=== PATIENT | male | born 1960 | race Caucasian/White ===

== ENCOUNTER 2017-06-07 10:42 | Emergency (ER) | payer OTHER ==
[2017-06-07 11:17] VITALS: TEMP 98.1; BMI 20.9
--- NOTE | 2017-06-07 11:34 | ED PDOC ---
Arrival/HPI - General Chief Complaint: Lower Extremity Problem/Injury Time Seen by Provider: 06/07/17 11:20 Historian: Patient - History of Present Illness Narrative History of Present Illness (Text): 06/07/17 11:20 This 57 yo male presents to this ED c/o left knee pain and swelling x 8 days. Patient stated while standing, his left knee :gave out", causing his left knee to turn. He said his left knee is mild swelling. Denies past medical history. He admits a left knee injury x 8 months ago while at work on the same knee, but ot improved within few days. Denies recent travel, recent surgery, hx. gout, leg swelling, calf pain, dizziness, or abnormal gait. Time/Duration: 1 week Quality: Aching Context: Home Past Medical History - Provider Review Nursing Documentation Reviewed: Yes - Infectious Disease Hx of Infectious Diseases: None - Tetanus Immunization Tetanus Immunization: Up to Date (tetanus 4 yrs ago) - Psychiatric Hx Depression: No Hx Emotional Abuse: No Hx Physical Abuse: No Hx Substance Use: No - Anesthesia Hx Anesthesia: No - Suicidal Assessment Feels Threatened In Home Enviroment: No Family/Social History - Physician Review Nursing Documentation Reviewed: Yes Family/Social History: No Known Family HX Smoking Status: Never Smoked Hx Alcohol Use: Yes (Socially) Frequency of alcohol use: Socially Hx Substance Use: No Hx Substance Use Treatment: No Allergies/Home Meds Allergies/Adverse Reactions: Allergies No Known Allergies Allergy (Verified 06/07/17 11:05) Review of Systems - Review of Systems Constitutional: Normal. absent: Fatigue, Weight Change, Fevers, Night Sweats Eyes: Normal ENT: Normal Respiratory: Normal Cardiovascular: Normal Gastrointestinal: Normal Genitourinary Male: Normal Musculoskeletal: Other ((+) left knee pain and swelling) Skin: Normal Neurological: Normal Endocrine: Normal Hemo/Lymphatic: Normal Psychiatric: Normal Physical Exam Vital Signs Temp Pulse Resp BP Pulse Ox 06/07/17 14:30 63 17 136/77 99 06/07/17 11:07 98.1 F 50 L 18 148/80 98 Temperature: Afebrile Blood Pressure: Normal Pulse: Regular Respiratory Rate: Normal Appearance: Positive for: Well-Appearing, Non-Toxic, Comfortable Pain Distress: None Mental Status: Positive for: Alert and Oriented X 3 - Systems Exam Head: Present: Atraumatic, Normocephalic Pupils: Present: PERRL Extroacular Muscles: Present: EOMI Conjunctiva: Present: Normal Mouth: Present: Moist Mucous Membranes Neck: Present: Normal Range of Motion Back: Present: Normal Inspection Upper Extremity: Present: Normal Inspection, Normal ROM, NORMAL PULSES, Neurovascularly Intact, Capillary Refill < 2s. No: Cyanosis, Edema Lower Extremity: Present: NORMAL PULSES, Normal ROM, Neurovascularly Intact, Capillary Refill < 2 s, Other ((+) left knee appears mild swollen. No tenderness. No septic knee joint. no erythema or skin rash. Right knee is normal). No: Edema, CALF TENDERNESS, Cyanosis, Sussy's Sign, Erythema, Deformity, Temperature Abnormalties Neurological: Present: GCS=15, CN II-XII Intact, Speech Normal, Motor Func Grossly Intact, Normal Sensory Function, Normal Cerebellar Funct, Gait Normal, Memory Normal Skin: Present: Warm, Dry, Normal Color. No: Rashes Psychiatric: Present: Alert, Oriented x 3, Normal Insight, Normal Concentration Medical Decision Making ED Course and Treatment: 06/07/17 13:51 Re-evaluation. Patient feels better. Discussed results and plan with patient who expresses understanding. Counseling was provided regarding the diagnosis and prognosis. All questions answered and there is agreement with the plan to discharge home with instructions. Patient stable for discharge. Return if symptoms persist or worsen Re-evaluation Time: 13:50 Reassessment Condition: Re-examined, Improved - RAD Interpretation Narrative RAD Interpretations (Text): Accession No. : [id number] Patient Name / ID : JORGE LUIS SPEARS / [id number] Exam Date : 06/07/2017 12:35:50 ( Approved ) Study Comment : Sex / Age : M / 57Y Creator : Ameya Lewis MD Dictator : Ameya Lewis MD Seafood Packer : Market Researcher : Ameya Lewis MD Approver2 : Report Date : 06/07/2017 12:49:26 My Comment : PROCEDURE: Left Knee Radiographs. HISTORY: Pain. COMPARISON: None. FINDINGS: BONES: Normal. No fracture. JOINTS: Normal. No osteoarthritis. JOINT EFFUSION: None. OTHER FINDINGS: The patellar view is unremarkable IMPRESSION: Normal radiographs of the left knee. Radiology Orders: 06/07/17 11:36 KNEE WITH PATELLA LEFT 3 VIEW [RAD] Stat - Medication Orders Current Medication Orders: Discontinued Medications Naproxen (Anaprox Ds) 550 mg PO STAT STA Stop: 06/07/17 11:38 Last Admin: 06/07/17 12:13 Dose: 550 mg Disposition/Present on Arrival - Present on Arrival Any Indicators Present on Arrival: No History of DVT/PE: No History of Uncontrolled Diabetes: No Urinary Catheter: No History of Decub. Ulcer: No History Surgical Site Infection Following: None - Disposition Have Diagnosis and Disposition been Completed?: Yes Diagnosis: Knee pain Disposition: HOME/ ROUTINE Disposition Time: 13:51 Patient Plan: Discharge Condition: GOOD Discharge Instructions (ExitCare): Knee Sprain (ED) Additional Instructions: Call private doctor for follow up visit in 1-2 days. Apply ice pack, and rest. Remove lucille bandage at bedtime. Return to emergency if pain worsen. Prescriptions: Naproxen [Naprosyn Tab] 375 mg PO BID #14 tab Referrals: [facility]PPADMAJA [Primary Care Provider] - Follow up with primary Tram Turcios MD [Staff Provider] - Follow up with primary Forms: [employer] (American)
[2017-06-07] MEDS ORDERED: Naproxen 550 mg Tab PO STA (11:37)
--- NOTE | 2017-06-07 12:51 | RAD ---
PROCEDURE: Left Knee Radiographs. HISTORY: Pain. COMPARISON: None. FINDINGS: BONES: Normal. No fracture. JOINTS: Normal. No osteoarthritis. JOINT EFFUSION: None. OTHER FINDINGS: The patellar view is unremarkable IMPRESSION: Normal radiographs of the left knee.
[2017-06-07 14:31] VITALS: BP 136/77; PULSE 63; RESP 17; O2SAT 99
== END 2017-06-07 14:31 | disposition home or self-care (01) ==
LOC: ED 10:42
DX: M25.562 Pain in left knee (principal)

== ENCOUNTER 2017-09-22 09:00 | Emergency (ER) | payer OTHER ==
[2017-09-22 09:07] VITALS: BMI 21.1
[2017-09-22 09:11] VITALS: TEMP 98.2
--- NOTE | 2017-09-22 09:42 | ED PDOC ---
Arrival/HPI - General Chief Complaint: Lower Extremity Problem/Injury Time Seen by Provider: 09/22/17 09:12 Historian: Patient - History of Present Illness Narrative History of Present Illness (Text): 09/22/17 09:38 57yr old male presents today with chronic left knee pain. pt denies any trauma or injury. states he has been having pain in the medial aspect of the knee for the past 2-3 months. denies fever/chills. pt states pain is sharp pressure and worse with walking up stairs. no medications have been taken for pain at home. no fever/chills. no numbness, weakness, tingling in the extremities. no other complaints. Time/Duration: > month (2-3 months) Symptom Onset: Gradual Symptom Course: Unchanged Quality: Aching, Pressure Severity Level: 5 Past Medical History - Provider Review Nursing Documentation Reviewed: Yes - Travel History Have you recently traveled outside [place] w/in the past 3 mons?: No - Infectious Disease Hx of Infectious Diseases: None - Tetanus Immunization Tetanus Immunization: Up to Date (tetanus 4 yrs ago) - Psychiatric Hx Depression: No Hx Emotional Abuse: No Hx Physical Abuse: No Hx Substance Use: No - Anesthesia Hx Anesthesia: No Hx Anesthesia Reactions: No Hx Malignant Hyperthermia: No - Suicidal Assessment Feels Threatened In Home Enviroment: No Family/Social History - Physician Review Nursing Documentation Reviewed: Yes Family/Social History: Unknown Family HX Smoking Status: Smoker Currrent Status Unknown Hx Alcohol Use: Yes (Socially) Hx Substance Use: No Hx Substance Use Treatment: No Allergies/Home Meds Allergies/Adverse Reactions: Allergies No Known Allergies Allergy (Verified 06/07/17 11:05) Review of Systems - Review of Systems Constitutional: absent: Fatigue, Fevers Respiratory: absent: SOB, Cough Cardiovascular: absent: Chest Pain, Palpitations Gastrointestinal: absent: Abdominal Pain, Nausea, Vomiting Genitourinary Male: absent: Dysuria Musculoskeletal: Arthralgias (left knee pain). absent: Back Pain, Neck Pain Skin: absent: Rash, Pruritis Neurological: absent: Headache, Dizziness Psychiatric: absent: Anxiety, Depression Physical Exam Vital Signs Reviewed: Yes Vital Signs Temp Pulse Resp BP Pulse Ox 09/22/17 09:08 98.2 F 56 L 16 148/86 97 Temperature: Afebrile Blood Pressure: Normal Pulse: Regular Respiratory Rate: Normal Appearance: Positive for: Well-Appearing, Non-Toxic, Comfortable Pain Distress: None Mental Status: Positive for: Alert and Oriented X 3 - Systems Exam Head: Present: Atraumatic Mouth: Present: Moist Mucous Membranes Respiratory/Chest: Present: Clear to Auscultation Cardiovascular: Present: Regular Rate and Rhythm Lower Extremity: Present: Normal Inspection, NORMAL PULSES, Normal ROM, Tenderness (left knee; NO edema, no erythema, no ecchymosis; full rom of knee. + minimal ttp over medial anterior aspect of the knee. no calf tenderness; sensation and distal pulses intact. cap refill <2. ), Neurovascularly Intact, Capillary Refill < 2 s. No: Edema, CALF TENDERNESS, Swelling, Erythema, Deformity, Temperature Abnormalties Neurological: Present: GCS=15, Speech Normal Skin: Present: Warm, Dry, Normal Color. No: Rashes Psychiatric: Present: Alert, Oriented x 3 Medical Decision Making ED Course and Treatment: 09/22/17 09:44 Patient nontoxic well-appearing in no distress with stable vital signs X-rays of the left knee; no fracture toradol IM Patient placed in knee immobilizer. Patient refused Crutches. cane given for ambulation I discussed all results with patient advised to followup with the orthopedist for the next 2 days. Return if symptoms worsen persist or new symptoms develop Patient verbalizes understanding of discharge instructions and need for immediate followup. all aspects of this case were discussed the attending of record. Impression: knee pain Motrin every 6 hours as needed for pain Rest, ice, compression, elevation Use crutches for ambulation Followup with the orthopedist within the next 2 days Followup with primary care physician within the next 2 days Return if symptoms worsen persist or if new symptoms develop - RAD Interpretation Radiology Orders: 09/22/17 09:25 KNEE WITH PATELLA LEFT 3 VIEW [RAD] Stat - Medication Orders Current Medication Orders: Discontinued Medications Ketorolac Tromethamine (Toradol) 60 mg IM STAT STA Stop: 09/22/17 09:26 Last Admin: 09/22/17 09:33 Dose: 60 mg [place] Pain Assessment Document 09/22/17 09:33 SF (Rec: 09/22/17 09:33 [id number]) Pain Reassessment Is this a pain reassessment? Yes Sleep Is patient sleeping during reassessment? No Presence of Pain Presence of Pain Yes Pain Scale Used Pain Scale Used Numeric IM Administration Charges Document 09/22/17 09:33 SF (Rec: 09/22/17 09:33 [id number]) Injection Site MAR Injection Site Left Deltoid Charges for Administration # of IM Administrations 1 Disposition/Present on Arrival - Present on Arrival Any Indicators Present on Arrival: No History of DVT/PE: No History of Uncontrolled Diabetes: No Urinary Catheter: No History of Decub. Ulcer: No History Surgical Site Infection Following: None - Disposition Have Diagnosis and Disposition been Completed?: Yes Diagnosis: Knee pain Disposition: HOME/ ROUTINE Disposition Time: 10:04 Patient Plan: Discharge Condition: GOOD Discharge Instructions (ExitCare): Knee Pain (ED) Additional Instructions: Motrin every 6 hours as needed for pain Rest, ice, compression, elevation Use crutches for ambulation Followup with the orthopedist within the next 2 days Followup with primary care physician within the next 2 days Return if symptoms worsen persist or if new symptoms develop Prescriptions: Ibuprofen [Motrin] 600 mg PO Q6H PRN #20 tab PRN Reason: pain/fever reduction Referrals: See Carpio III, MD [Medical Doctor] - [facility] up with [place] [facility] [place] - Follow up with primary [facility] [place] [Outside] - Follow up with primary Tawanda Sanchez MD [Staff Provider] - Follow up with primary Forms: [employer] (Uzbek), WORK NOTE
--- NOTE | 2017-09-22 10:08 | RAD ---
PROCEDURE: Left Knee Radiographs. HISTORY: Pain. No history of recent/ related trauma provided COMPARISON: None. FINDINGS: BONES: Normal. No fracture. JOINTS: Normal. No osteoarthritis. JOINT EFFUSION: None. OTHER FINDINGS: None. IMPRESSION: No significant or acute findings to account for/ related to the clinical presentation.
[2017-09-22 10:44] VITALS: BP 145/80; PULSE 62; RESP 17; O2SAT 98
== END 2017-09-22 10:46 | disposition home or self-care (01) ==
LOC: ED 09:00
DX: M25.562 Pain in left knee (principal)
CPT/HCPCS: 73562; 96372; 99284; J1885

== ENCOUNTER 2017-10-23 13:21 | Emergency (ER) | payer OTHER ==
[2017-10-23 13:21] VITALS: BMI 21.1
[2017-10-23 13:36] VITALS: TEMP 99.3
--- NOTE | 2017-10-23 13:38 | ED PDOC ---
Arrival/HPI - General Chief Complaint: Lower Extremity Problem/Injury Time Seen by Provider: 10/23/17 13:32 Historian: Patient - History of Present Illness Narrative History of Present Illness (Text): 10/23/17 13:34 57 y/o male, pmh including chronic left knee pain for the past 5 months, nkda, c /o lt. knee/calf pain x 5 months. aching pain, aggravated by walking, no pain medication taken at home, no night sweat, no dizziness, no chest pain or shortness of breath, no night sweat, no rash, no other medical or psychological complaints. Past Medical History - Provider Review Nursing Documentation Reviewed: Yes - Infectious Disease Hx of Infectious Diseases: None - Tetanus Immunization Tetanus Immunization: Up to Date (tetanus 4 yrs ago) - Cardiac Hx Cardiac Disorders: No Hx Hypertension: No - Pulmonary Hx Pneumonia: No - HEENT Hx Epistaxis: No - Endocrine/Metabolic Hx Hypothyroidism: No - Integumentary Hx Squamous Cell Carcinoma: No - Musculoskeletal/Rheumatological Hx Musculoskeletal Disorders: No - Gastrointestinal Hx Colostomy: No - Genitourinary/Gynecological Hx Genitourinary Disorders: No - Psychiatric Hx Depression: No Hx Emotional Abuse: No Hx Physical Abuse: No Hx Substance Use: No - Anesthesia Hx Anesthesia: No Hx Anesthesia Reactions: No Hx Malignant Hyperthermia: No - Suicidal Assessment Feels Threatened In Home Enviroment: No Family/Social History - Physician Review Nursing Documentation Reviewed: Yes Family/Social History: Unknown Family HX Smoking Status: Smoker Currrent Status Unknown Hx Alcohol Use: Yes (Socially) Hx Substance Use: No Hx Substance Use Treatment: No Allergies/Home Meds Allergies/Adverse Reactions: Allergies No Known Allergies Allergy (Verified 10/23/17 13:25) Review of Systems - Review of Systems Constitutional: absent: Fatigue, Fevers Eyes: absent: Vision Changes ENT: absent: Hearing Changes Respiratory: absent: SOB, Cough Cardiovascular: absent: Chest Pain Gastrointestinal: absent: Abdominal Pain, Nausea, Vomiting Musculoskeletal: Arthralgias, Myalgias. absent: Back Pain, Neck Pain, Joint Swelling Skin: absent: Rash, Pruritis Neurological: absent: Headache, Dizziness Psychiatric: absent: Anxiety, Depression Physical Exam Vital Signs Reviewed: Yes Vital Signs Temp Pulse Resp BP Pulse Ox 10/23/17 13:28 99.3 F 71 16 118/73 97 Temperature: Afebrile Blood Pressure: Normal Pulse: Regular Respiratory Rate: Normal Appearance: Positive for: Well-Appearing, Non-Toxic, Comfortable Pain Distress: Moderate Mental Status: Positive for: Alert and Oriented X 3 - Systems Exam Head: Present: Atraumatic, Normocephalic Pupils: Present: PERRL Extroacular Muscles: Present: EOMI Conjunctiva: Present: Normal Mouth: Present: Moist Mucous Membranes Neck: Present: Normal Range of Motion Respiratory/Chest: Present: Clear to Auscultation, Good Air Exchange. No: Respiratory Distress, Accessory Muscle Use Cardiovascular: Present: Regular Rate and Rhythm, Normal S1, S2. No: Murmurs Abdomen: Present: Normal Bowel Sounds. No: Tenderness, Distention, Peritoneal Signs Back: Present: Normal Inspection Upper Extremity: Present: Normal Inspection. No: Cyanosis, Edema Lower Extremity: Present: Normal Inspection, NORMAL PULSES, Other (Lt. knee: no tenderness or swelling, no deformities, FROM without limitation, sensation intact, motor 5/5, +DPPT pulses, capillary refill< 2 seconds, neurovascular intact, no cellulitis, mild lt. calf tenderness. ). No: Edema, Tenderness, Swelling Neurological: Present: GCS=15, Speech Normal, Motor Func Grossly Intact, Gait Normal, Memory Normal Skin: Present: Warm, Dry, Normal Color. No: Rashes Psychiatric: Present: Alert, Oriented x 3, Normal Insight, Normal Concentration Medical Decision Making ED Course and Treatment: 10/23/17 13:40 -LLE venuous doppler -Toradol IM -Lt. knee xray performed about 1 month ago with no acute findings. Pt. has no new injury or fall, no emergent repeat image indicated. 10/23/17 16:06 -LLE venuous doppler: as per preliminary report, no acute DVT -Pain decreased, will discharge home. Tried to give crutches but not a candidate, cane given with lucille wrap. -Discharge home with naproxen, lucille wrap, cane, follow up with your own pmd and orthopedic within 2 days, return to the ER for any new or worsening signs or symptoms. - RAD Interpretation Radiology Orders: 10/23/17 13:36 DUPLEX LOWER EXTRM VEIN LEFT [US] Stat -LLE venuous doppler: as per preliminary report, no acute DVT Collection Correspondent: Radiologist - Medication Orders Current Medication Orders: Discontinued Medications Ketorolac Tromethamine (Toradol) 60 mg IM STAT STA Stop: 10/23/17 13:39 Last Admin: 10/23/17 14:18 Dose: 60 mg MAR Pain Assessment Document 10/23/17 14:18 [facility] (Rec: 10/23/17 14:18 [facility] [id number]) Pain Reassessment Is this a pain reassessment? No Sleep Is patient sleeping during reassessment? No Presence of Pain Presence of Pain Yes Pain Scale Used Pain Scale Used Numeric Location Left, Right or Bilateral Left Pain Location Body Site Knee Description Intensity of Pain at present 5 IM Administration Charges Document 10/23/17 14:18 [facility] (Rec: 10/23/17 14:18 [facility] [id number]) Charges for Administration # of IM Administrations 1 - PA / [employer] / Resident Statement MD/ has reviewed & agrees with the documentation as recorded. Disposition/Present on Arrival - Present on Arrival Any Indicators Present on Arrival: No History of DVT/PE: No History of Uncontrolled Diabetes: No Urinary Catheter: No History of Decub. Ulcer: No History Surgical Site Infection Following: None - Disposition Have Diagnosis and Disposition been Completed?: Yes Diagnosis: Knee pain Disposition: HOME/ ROUTINE Disposition Time: 16:08 Patient Plan: Discharge Patient Problems: Current Active Problems Problem Status Onset Knee pain Acute Condition: GOOD Additional Instructions: -Discharge home with naproxen, lucille wrap, cane, follow up with your own pmd and orthopedic within 2 days, return to the ER for any new or worsening signs or symptoms. Prescriptions: Naproxen 500 mg PO BID PRN #20 tab PRN Reason: Other Referrals: [facility] [place] [facility] [place] - Follow up with primary Tee Lott MD [Staff Provider] - Follow up with primary Forms: WORK NOTE
[2017-10-23 16:40] VITALS: RESP 17
[2017-10-23 17:12] VITALS: BP 121/76; PULSE 72; O2SAT 99
--- NOTE | 2017-10-24 13:10 | US ---
PROCEDURE: Left lower extremity venous US HISTORY: Leg pain and swelling. Evaluate for DVT. PHYSICIAN(S): Larry Santos MD. TECHNIQUE: Duplex sonography and color-flow Doppler with graded compression were used to evaluate the deep venous system of the left lower extremity. FINDINGS: The visualized deep venous system of the left lower extremity is sonographically normal and compressible. Normal wave forms and augmentation are seen. There is no sonographic evidence for deep venous thrombosis in the visualized segments of the left lower extremity. IMPRESSION: 1. No sonographic evidence for deep venous thrombosis in the visualized segments of the left lower extremity.
== END 2017-10-23 17:16 | disposition home or self-care (01) ==
LOC: ED 13:21
DX: M25.562 Pain in left knee (principal)
CPT/HCPCS: 93971; 96372; 99285; J1885